=== PATIENT | female | born 1975 | race American Indian/Alaskan Native ===

== ENCOUNTER 2019-09-05 08:27 | Emergency (ER) | payer SELFPAY ==
[2019-09-05 08:32] VITALS: BP 141/96
--- NOTE | 2019-09-05 11:13 | Emergency Department Report ---
ED Upper Extremity Inj HPI - General Chief Complaint: Extremity Injury, Upper Stated Complaint: RT PINKY POSS BROKEN Time Seen by Provider: 09/05/19 11:07 Source: patient Mode of arrival: Ambulatory Limitations: No Limitations - History of Present Illness Initial Comments: 44-year-old -[place] female presents to the emergency room complaining of right pinky finger injury. Patient states that she had smashed her pinky finger between a refrigerator and recliner at work 2 days ago. Patient has only taken aspirin for pain. Patient does admit to drinking every day. She reports she's had a hysterectomy in the past. Patient denies any other complaints MD Complaint: Injury to:: right, finger (fifth finger) Onset/Timin -: days(s) Other Extremity Injury: Fingers: Right Handedness: right Place: work Severity scale (0 -10): 6 Context: crush Associated Symptoms: denies other symptoms - Related Data Allergies Allergy/AdvReac Type Severity Reaction Status Date / Time morphine Allergy Unknown Verified 09/05/19 08:31 ED Review of Systems ROS: Stated complaint: RT PINKY POSS BROKEN Other details as noted in HPI Comment: All other systems reviewed and negative ED Past Medical Hx - Past Medical History Previous Medical History?: Yes Hx Hypertension: Yes Additional medical history: Anemia ED Physical Exam - General Limitations: No Limitations General appearance: alert, in no apparent distress - Head Head exam: Present: atraumatic, normocephalic - Eye Eye exam: Present: normal appearance - ENT ENT exam: Present: mucous membranes moist - Expanded Upper Extremity Exam Right Shoulder Exam: Present: normal inspection, full ROM Upper Arm exam: Present: normal inspection, full ROM Elbow exam: Present: normal inspection, full ROM Forearm Wrist exam: Present: normal inspection, full ROM Hand Wrist exam: Present: tenderness (fifth finger), swelling (fifth finger) Neuro motor exam: Present: thumb opposition intact, thumb IP flexion intact Vascular: Present: normal capillary refill - Neurological Exam Neurological exam: Present: alert, oriented X3 - Psychiatric Psychiatric exam: Present: normal affect, normal mood - Skin Skin exam: Present: warm, dry, intact, normal color. Absent: rash ED Course Vital Signs 09/05/19 08:31 Temperature 97.4 F L Pulse Rate 88 Respiratory 16 Rate Blood Pressure 141/96 O2 Sat by Pulse 95 Oximetry ED Medical Decision Making - Radiology Data Radiology results: report reviewed Patient: ALEJANDRO CORREIA MR#: [id number] : 1975 Acct:[id number] Age/Sex: 44 / F ADM Date: 09/05/19 Loc: ED Attending Dr: Ordering Physician: VIRGILIO VILLANUEVA Date of Service: 09/05/19 Procedure(s): XR finger(s) 2+V RT Accession Number(s): [id number] cc: VIRGILIO VILLANUEVA Fluoro Time In Minutes: RIGHT LITTLE FINGER 3 VIEWS INDICATION / CLINICAL INFORMATION: rt pinky injury. COMPARISON: None available. FINDINGS: Moderately advanced degenerative change in the proximal interphalangeal joint of the little finger. No other significant skeletal abnormality. Signer Name: Rosalino Ruff MD FACR Signed: 09/05/2019 11:54 AM Workstation Name: [id number] Transcribed By: MS Dictated By: Rosalino Ruff MD Electronically Authenticated By: Rosalino Ruff MD Signed Date/Time: 09/05/19 1154 DD/ 1153 TD/TT: - Medical Decision Making 44-year-old -[place] female presents to the emergency room complaining of right pinky finger injury. Patient states that she had smashed her pinky finger between a refrigerator and recliner at work 2 days ago. Patient has only taken aspirin for pain. Patient does admit to drinking every day. She reports she's had a hysterectomy in the past. Patient denies any other complaints Critical care attestation.: If time is entered above; I have spent that time in minutes in the direct care of this critically ill patient, excluding procedure time. ED Disposition Clinical Impression: Finger injury Disposition: DC-01 TO HOME OR SELFCARE Is pt being admited?: No Does the pt Need Aspirin: No Condition: Stable Instructions: Osteoarthritis (ED) Additional Instructions: X-ray negative for any acute finding. This shows a you have degenerative joint disease which is osteoarthritis. Recommend continue with ibuprofen or naproxen for pain management. Follow up with her primary care provider if his symptoms persist or gets worse Referrals: [facility] [Other] - 3-5 Days Forms: Work/School Release Form(ED)
--- NOTE | 2019-09-05 11:58 | XRay Report ---
RIGHT LITTLE FINGER 3 VIEWS INDICATION / CLINICAL INFORMATION: rt pinky injury. COMPARISON: None available. FINDINGS: Moderately advanced degenerative change in the proximal interphalangeal joint of the little finger. N o other significant skeletal abnormality. Signer Name: Rosalino Ruff MD FACSupriya Signed: 09/05/2019 11:54 AM Workstation Name: [id number]
== END 2019-09-05 12:34 | disposition home or self-care (01) ==
LOC: ED 08:27
DX: S69.81XA Other specified injuries of right wrist, hand and finger(s), initial encounter (principal); I10 Essential (primary) hypertension; D64.9 Anemia, unspecified; Z79.899 Other long term (current) drug therapy; W23.0XXA Caught, crushed, jammed, or pinched between moving objects, initial encounter; Y93.89 Activity, other specified; Y92.89 Other specified places as the place of occurrence of the external cause; Y99.8 Other external cause status

== ENCOUNTER 2020-05-03 22:01 | Emergency (ER) | payer OTHER ==
[2020-05-03 23:41] VITALS: BP 122/78
[2020-05-04 00:21] LABS: Basophils # (Auto) 0.1 K/mm3 (0.0-0.1); Basophils % (Auto) 2.2 % (0.0-1.8); Eosinophils % (Auto) 0.5 % (0.0-4.3); Hematocrit 36.1 % (30.3-42.9); Hemoglobin 12.4 gm/dl (10.1-14.3); Lymphocytes # (Auto) 1.5 K/mm3 (1.2-5.4); Lymphocytes % (Auto) 41.9 % (13.4-35.0); Mean Corpuscular HGB Conc 34 % (30-34); Mean Corpuscular Volume 104 fl (79-97); Monocytes # (Auto) 0.4 K/mm3 (0.0-0.8); Monocytes % (Auto) 12.3 % (0.0-7.3); Platelet Count 103 K/mm3 (140-440); Red Blood Count 3.47 M/mm3 (3.65-5.03); Red Cell Distribution Width 13.6 % (13.2-15.2)
[2020-05-04 00:30] LABS: Alanine Aminotransferase 47 units/L (7-56); Albumin 4.2 g/dL (3.9-5); Blood Urea Nitrogen 3 mg/dL (7-17); Hemolysis Index 6
[2020-05-04 00:43] LABS: BUN/Creatinine Ratio 8
--- NOTE | 2020-05-04 01:52 | Emergency Department Report ---
ED Abdominal Pain HPI - General Chief Complaint: Abdominal Pain Stated Complaint: ABD PAIN PUI?: No Time Seen by Provider: 05/04/20 01:45 Source: patient Mode of arrival: Ambulatory Limitations: No Limitations - History of Present Illness Initial Comments: Patient is a 45-year-old female that presents emergency room with complaints of abdominal pain x4 weeks. Patient states it is worsening. Patient states 4 days ago it became extreme. Patient states her pain is an 8 out of 10. Patient states it is in her generalized abdomen. Patient states is nonradiating. Patient denies nausea vomiting. Patient denies chest pain. Patient denies fever and chills. Patient denies shortness of breath. Patient denies recent travel. Patient denies recent international travel. Patient denies exposure to the novel coronavirus. Patient denies sick contacts. Patient denies fever and chills. Patient denies cough. Patient denies diarrhea. Patient denies coming in contact with anybody with symptoms of the novel coronavirus. MD Complaint: abdominal pain -: Gradual Location: diffuse Radiation: none Migration to: no migration Severity scale (0 -10): 8 Quality: stabbing Consistency: constant Improves With: rest Worsens With: movement Associated Symptoms: denies other symptoms. denies: nausea, vomiting, diarrhea, fever, chills, constipation, dysuria, hematemesis, hematochezia, melena, hematuria, anorexia, syncope - Related Data LMP (females 10-50): unknown Home Medications Medication Instructions Recorded Confirmed Last Taken Diovan 160 mg PO DAILY 02/18/20 02/18/20 Unknown Previous Rx's Medication Instructions Recorded Last Taken Type Docusate Sodium [Colace] 100 mg PO BID #30 capsule 02/19/20 Unknown Rx levoFLOXacin [Levaquin TAB] 500 mg PO QDAY #5 tablet 02/19/20 Unknown Rx polyethylene glycoL 3350 [Miralax 17 gm PO BID #30 powd.pack 02/19/20 Unknown Rx 3350] Sulfamethoxazole/Trimethoprim 1 each PO BID 10 Days #20 tablet 05/04/20 Unknown Rx [Bactrim DS TAB] Allergies Allergy/AdvReac Type Severity Reaction Status Date / Time morphine Allergy Unknown Verified 01/19/20 13:27 ED Review of Systems ROS: Stated complaint: ABD PAIN Other details as noted in HPI Constitutional: denies: chills, fever Eyes: denies: eye pain, eye discharge, vision change ENT: denies: ear pain, throat pain Respiratory: denies: cough, shortness of breath, wheezing Cardiovascular: denies: chest pain, palpitations Endocrine: no symptoms reported Gastrointestinal: abdominal pain. denies: nausea, diarrhea Genitourinary: denies: urgency, dysuria, discharge Musculoskeletal: denies: back pain, joint swelling, arthralgia Skin: denies: rash, lesions Neurological: denies: headache, weakness, paresthesias Psychiatric: denies: anxiety, depression Hematological/Lymphatic: denies: easy bleeding, easy bruising ED Past Medical Hx - Past Medical History Previous Medical History?: Yes Hx Hypertension: Yes Hx Renal Disease: Yes Additional medical history: Anemia - Surgical History Past Surgical History?: Yes Additional Surgical History: HYSTerectomy, BLADDER TACT - Family History Family history: no significant - Social History Smoking Status: Never Smoker Substance Use Type: None - Medications Home Medications: Home Medications Medication Instructions Recorded Confirmed Last Taken Type Diovan 160 mg PO DAILY 02/18/20 02/18/20 Unknown History Docusate Sodium [Colace] 100 mg PO BID #30 capsule 02/19/20 Unknown Rx levoFLOXacin [Levaquin TAB] 500 mg PO QDAY #5 tablet 02/19/20 Unknown Rx polyethylene glycoL 3350 [Miralax 17 gm PO BID #30 powd.pack 02/19/20 Unknown Rx 3350] Sulfamethoxazole/Trimethoprim 1 each PO BID 10 Days #20 tablet 05/04/20 Unknown Rx [Bactrim DS TAB] ED Physical Exam - General Limitations: No Limitations General appearance: alert, in no apparent distress - Head Head exam: Present: atraumatic, normocephalic - Eye Eye exam: Present: normal appearance - ENT ENT exam: Present: mucous membranes moist - Neck Neck exam: Present: normal inspection - Respiratory Respiratory exam: Present: normal lung sounds bilaterally. Absent: respiratory distress - Cardiovascular Cardiovascular Exam: Present: regular rate, normal rhythm. Absent: systolic murmur, diastolic murmur, rubs, gallop - GI/Abdominal GI/Abdominal exam: Present: soft, tenderness, normal bowel sounds. Absent: distended, guarding - Extremities Exam Extremities exam: Present: normal inspection - Back Exam Back exam: Present: normal inspection - Neurological Exam Neurological exam: Present: alert, oriented X3 - Psychiatric Psychiatric exam: Present: normal affect, normal mood - Skin Skin exam: Present: warm, dry, intact, normal color. Absent: rash ED Course Vital Signs 05/03/20 23:38 Temperature 98 F Pulse Rate 82 Respiratory 18 Rate Blood Pressure 122/78 [Left] O2 Sat by Pulse 100 Oximetry - Reevaluation(s) Reevaluation #1: I discussed all results and clinical findings with patient. I discussed plan of care with patient. Patient agrees with plan of care. Patient is stable for discharge. Patient will be discharged home. Patient given discharge instructions. Patient voiced understanding of discharge instructions. 05/04/20 03:43 - Consultations Consultation #1: I discussed case with general surgery. Dr. LYONS states the patient is stable to follow-up as an outpatient. Patient can be discharged home. 05/04/20 03:38 ED Medical Decision Making - Lab Data Result diagrams: 05/03/20 23:47 05/03/20 23:47 - Radiology Data Radiology results: report reviewed CT ABDOMEN AND PELVIS WITH CONTRAST INDICATION: Patient complains of "Generalized" abdominal pain x 4 weeks.. TECHNIQUE: Axial CT images were obtained through the abdomen and pelvis after 100 cc Omni [address] scans at this location are performed using CT dose reduction for ALARA by means of automated exposure control. COMPARISON: CT abdomen pelvis 02/17/2020 FINDINGS: LOWER CHEST: No significant abnormality. LIVER: Several hepatic cysts, unchanged liver remains enlarged with moderate decreased attenuation characteristic for steatosis. GALLBLADDER: No significant abnormality. BILE DUCTS: No significant abnormality. PANCREAS: Chronic calcific pancreatitis, unchanged. SPLEEN: No significant abnormality. ADRENALS: No significant abnormality. RIGHT KIDNEY and URETER: No significant abnormality. LEFT KIDNEY and URETER: No significant abnormality. STOMACH and SMALL BOWEL: No significant abnormality. COLON: Moderate amount of stool within the rectal vault characteristic for constipation. APPENDIX: Enhancing mildly dilated thick-walled appendix measuring 8 mm image 126 without periappendiceal inflammation unchanged characteristic for chronic appendicitis. PERITONEUM: No free fluid. No free air. No fluid collection. LYMPH NODES: No significant adenopathy. AORTA and ARTERIES: No significant abnormality. IVC and VEINS: No significant abnormality. URINARY BLADDER: No significant abnormality. REPRODUCTIVE ORGANS: Remains surgically absent ADDITIONAL FINDINGS: None. SKELETAL SYSTEM: No significant abnormality. IMPRESSION: 1. Chronic calcific pancreatitis and chronic dilated thick-walled appendix appendix characteristic for chronic appendicitis, unchanged. 2 constipation 3. Moderate hepatomegaly and steatosis, unchanged. - Medical Decision Making Patient is a 45-year-old female that presents emergency room with complaints of abdominal pain. Patient states she has had intermittent abdominal pain. Patient states abdominal pain left after being discharged from the hospital but has returned. Patient has abdominal tenderness. Patient has CT scan to rule out appendicitis. Patient has chronic inflammation of the appendix. Patient had labs done and were essentially unremarkable except for UTI. Patient has abnormal LFTs. Patient stable for discharge. I discussed the case with general surgery and general surgery agrees the patient is stable for discharge can follow-up as an outpatient for management of her chronic appendicitis. Patient is UTI, patient will be given antibiotics. Patient given discharge directions. Patient stable discharge. - Differential Diagnosis Gastroenteritis, constipation, appendicitis, pancreatitis, gastritis. Critical care attestation.: If time is entered above; I have spent that time in minutes in the direct care of this critically ill patient, excluding procedure time. ED Disposition Clinical Impression: Chronic abdominal pain, Chronic appendicitis, Fatty liver, Elevated SGOT (AST) Abdominal pain Qualifiers: Abdominal location: generalized Qualified Code(s): R10.84 - Generalized abdominal pain Constipation Qualifiers: Constipation type: unspecified constipation type Qualified Code(s): K59.00 - Constipation, unspecified UTI (urinary tract infection) Qualifiers: Urinary tract infection type: acute cystitis Hematuria presence: with hematuria Qualified Code(s): N30.01 - Acute cystitis with hematuria Disposition: DC- TO HOME OR SELFCARE Is pt being admited?: No Does the pt Need Aspirin: No Condition: Stable Instructions: Abdominal Pain (ED) Additional Instructions: Patient to follow-up with primary care in 2 to 3 days. Patient to follow-up with general surgery in 2 to 3 days. Patient to rest. Patient to increase water. Patient to avoid strenuous exercise or heavy lifting until cleared by general surgery and primary care.. Patient to take Tylenol or ibuprofen as needed for pain. Patient to take meds as directed. Patient to return to the ER if condition worsens, changes or new symptoms arise. Prescriptions: Sulfamethoxazole/Trimethoprim [Bactrim DS TAB] 1 each PO BID 10 Days #20 tablet Referrals: YUE ARCHIBALD MD [Primary Care Provider] - 2-3 Days JAYLA NATHAN MD [Staff Physician] - 2-3 Days Time of Disposition: 03:37
[2020-05-04 02:33] LABS: Bacteria,Urine 4+ /HPF (Negative); Bilirubin,Urine NEG (Negative); Blood,Urine SM (Negative); Color,Urine Yellow (Yellow); Protein,Urine <15 mg/dL mg/dL (Negative)
--- NOTE | 2020-05-04 03:15 | Cat Scan Report ---
CT ABDOMEN AND PELVIS WITH CONTRAST INDICATION: Patient complains of "Generalized" abdominal pain x 4 weeks.. TECHNIQUE: Axial CT images were obtained through the abdomen and pelvis after 100 cc Omni [address] scans at this location are performed using CT dose reduction for ALARA by means of automated expos ure control. COMPARISON: CT abdomen pelvis 02/17/2020 FINDINGS: LOWER CHEST: No significant abnormality. LIVER: Several hepatic cysts, unchanged liver remains enlarged with moderate decreased attenuation ch aracteristic for steatosis. GALLBLADDER: No significant abnormality. BILE DUCTS: No significant abnormality. PANCREAS: Chronic calcific pancreatitis, unchanged. SPLEEN: No significant abnormality. ADRENALS: No significant abnormality. RIGHT KIDNEY and URETER: No significant abnormality. LEFT KIDNEY and URETER: No significant abnormality. STOMACH and SMALL BOWEL: No significant abnormality. COLON: Moderate amount of stool within the rectal vault characteristic for constipation. APPENDIX: Enhancing mildly dilated thick-walled appendix measuring 8 mm image 126 without periappendi ceal inflammation unchanged characteristic for chronic appendicitis. PERITONEUM: No free fluid. No free air. No fluid collection. LYMPH NODES: No significant adenopathy. AORTA and ARTERIES: No significant abnormality. IVC and VEINS: No significant abnormality. URINARY BLADDER: No significant abnormality. REPRODUCTIVE ORGANS: Remains surgically absent ADDITIONAL FINDINGS: None. SKELETAL SYSTEM: No significant abnormality. IMPRESSION: 1. Chronic calcific pancreatitis and chronic dilated thick-walled appendix appendix characteristic fo r chronic appendicitis, unchanged. 2 constipation 3. Moderate hepatomegaly and steatosis, unchanged. Signer Name: Domenico Deluca MD Signed: 05/04/2020 3:09 AM Workstation Name: [email or web address]
== END 2020-05-04 04:07 | disposition home or self-care (01) ==
LOC: ED 22:01
DX: N39.0 Urinary tract infection, site not specified (principal); K59.00 Constipation, unspecified; K36 Other appendicitis; K76.0 Fatty (change of) liver, not elsewhere classified; R74.0 Nonspecific elevation of levels of transaminase and lactic acid dehydrogenase [LDH]; R10.84 Generalized abdominal pain; I10 Essential (primary) hypertension; Z90.710 Acquired absence of both cervix and uterus; Z98.890 Other specified postprocedural states; Z79.899 Other long term (current) drug therapy; Z88.8 Allergy status to other drugs, medicaments and biological substances
CPT/HCPCS: 36415; 74177; 80053; 81001; 83690; 85025; 87076; 87086; 87186; 99284; Q9967